=== PATIENT | male | born 1985 | race Caucasian/White ===

== ENCOUNTER 2019-04-30 09:58 | Outpatient (CLI) | payer OTHER | END 2019-04-30 23:59 | disposition home or self-care (01) | LOC: CFH 09:58 | PROVIDERS: ATTEND Internal Medicine Cardiovascular Disease | DX: I08.0 Rheumatic disorders of both mitral and aortic valves (principal); Z87.891 Personal history of nicotine dependence | CPT/HCPCS: 93306 ==